=== PATIENT | female | born 1995 | race American Indian/Alaskan Native ===

== ENCOUNTER 2017-08-04 11:18 | Emergency (ER) | payer MEDICAID ==
[2017-08-04 11:40] VITALS: BMI 26.5
[2017-08-04 11:45] VITALS: TEMP 98.2
--- NOTE | 2017-08-04 13:04 | RAD ---
HISTORY: chest pain COMPARISON: No prior. TECHNIQUE: Chest PA and lateral FINDINGS: LUNGS: No active pulmonary disease. PLEURA: No significant pleural effusion identified. No pneumothorax apparent. CARDIOVASCULAR: Normal. OSSEOUS STRUCTURES: No significant abnormalities. VISUALIZED UPPER ABDOMEN: Normal. OTHER FINDINGS: None. IMPRESSION: No active disease.
--- NOTE | 2017-08-04 13:05 | RAD ---
PROCEDURE: Radiographs of the Lumbar Spine. HISTORY: back pain COMPARISON: No prior. FINDINGS: BONES: Normal alignment. No listhesis. No fracture. DISC SPACES: Unremarkable. OTHER FINDINGS: None. IMPRESSION: Unremarkable radiographs of the lumbar spine.
--- NOTE | 2017-08-04 13:15 | ED PDOC ---
Arrival/HPI - General Chief Complaint: Back Pain Time Seen by Provider: 08/04/17 11:42 Historian: Patient - History of Present Illness Narrative History of Present Illness (Text): 08/04/17 13:13 22yo female with no PMhx who present with complaint of epigastric abdominal and lower back pain. Notes she had 2 episodes of brassy gassy vomit with dyspepsia this morning. States back pain is with movement. She denies urinary symptoms, diarrhea, constipation, fever, chills, ripping/tearing upper back pain, SOB, diaphoresis, LE edema, calf pain, recent travel, abdominal pain, any other complaint. Past Medical History - Provider Review Nursing Documentation Reviewed: Yes - Infectious Disease Hx of Infectious Diseases: None - Psychiatric Hx Substance Use: No - Anesthesia Hx Anesthesia: No Family/Social History - Physician Review Nursing Documentation Reviewed: Yes Family/Social History: Unknown Family HX Smoking Status: Never Smoked Hx Alcohol Use: No Hx Substance Use: No Allergies/Home Meds Allergies/Adverse Reactions: Allergies No Known Allergies Allergy (Verified 06/07/17 22:01) Review of Systems - Physician Review All systems were reviewed & negative as marked: Yes - Review of Systems Constitutional: Normal Eyes: Normal ENT: Normal Respiratory: Normal Cardiovascular: Normal Gastrointestinal: Abdominal Pain, Vomiting. absent: Constipation, Diarrhea, Nausea, Hematochezia, Hematemesis Genitourinary Female: Normal Musculoskeletal: Back Pain Skin: Normal Neurological: Normal Endocrine: Normal Hemo/Lymphatic: Normal Psychiatric: Normal Physical Exam Vital Signs Reviewed: Yes Vital Signs Temp Pulse Resp BP Pulse Ox 08/04/17 13:42 72 16 118/72 98 08/04/17 11:44 98.2 F 98 H 18 121/83 99 Temperature: Afebrile Blood Pressure: Normal Pulse: Regular Respiratory Rate: Normal Appearance: Positive for: Well-Appearing, Non-Toxic, Comfortable Pain Distress: None Mental Status: Positive for: Alert and Oriented X 3 - Systems Exam Head: Present: Atraumatic, Normocephalic Pupils: Present: PERRL Extroacular Muscles: Present: EOMI Conjunctiva: Present: Normal Mouth: Present: Moist Mucous Membranes Neck: Present: Normal Range of Motion Respiratory/Chest: Present: Clear to Auscultation, Good Air Exchange. No: Respiratory Distress, Accessory Muscle Use, Wheezes, Decreased Breath Sounds, Rales, Retracting, Rhonchi, Tachypneic Cardiovascular: Present: Regular Rate and Rhythm, Normal S1, S2. No: Murmurs Abdomen: Present: Normal Bowel Sounds, Other (Soft). No: Tenderness, Distention , Peritoneal Signs, Rebound, Guarding, McBurney's Point Tender, Rovsing's Sign Present Back: Present: Normal Inspection Upper Extremity: Present: Normal Inspection. No: Cyanosis, Edema Lower Extremity: Present: Normal Inspection. No: Edema Neurological: Present: GCS=15, CN II-XII Intact, Speech Normal Skin: Present: Warm, Dry, Normal Color. No: Rashes Psychiatric: Present: Alert, Oriented x 3, Normal Insight, Normal Concentration Medical Decision Making ED Course and Treatment: 08/04/17 18:25 PT in ED for stated history. she notes that her symptoms resolved in ED with medication EKG NSR with QT prolongation @98bpm CXR NAD LS xray - Negative Her symptoms is secondary to GERD, hence the resolution of her symptom with pepcid in ED. Her pain was also localized to her epigastric area. She was educated on her food choice. Rx of pepcid given. Referred to her PMD. Advised TRT Ed for any new or worsening symptoms. - RAD Interpretation Radiology Orders: 08/04/17 12:09 CHEST TWO VIEWS (PA/LAT) [RAD] Stat LS SPINE WITH OBL > 18 YRS OLD [RAD] Stat - Medication Orders Current Medication Orders: Discontinued Medications Famotidine (Pepcid) 40 mg PO STAT STA Stop: 08/04/17 12:10 Last Admin: 08/04/17 12:36 Dose: 40 mg Ibuprofen (Motrin Tab) 600 mg PO STAT STA Stop: 08/04/17 12:11 Last Admin: 08/04/17 12:36 Dose: 600 mg MAR Pain/Vitals Document 08/04/17 12:36 GMD (Rec: 08/04/17 12:36 GMD [id number]) Pain Reassessment Is This A Pain ReAssessment? No Sleep Is patient sleeping during reassessment? No Presence of Pain Presence of Pain Yes Ondansetron HCl (Zofran Odt) 4 mg PO STAT STA Stop: 08/04/17 13:15 Last Admin: 08/04/17 13:19 Dose: 4 mg Disposition/Present on Arrival - Present on Arrival Any Indicators Present on Arrival: No History of DVT/PE: No History of Uncontrolled Diabetes: No Urinary Catheter: No History of Decub. Ulcer: No History Surgical Site Infection Following: None - Disposition Have Diagnosis and Disposition been Completed?: Yes Diagnosis: Back pain, Abdominal pain, Chest pain Disposition: HOME/ ROUTINE Disposition Time: 13:25 Patient Plan: Discharge Condition: STABLE Discharge Instructions (ExitCare): Chest Pain (ED) Additional Instructions: Follow up with your doctor Return to ED for any new or worsening symptoms Prescriptions: Famotidine [Pepcid] 20 mg PO BID #20 tab Referrals: Arabella Felix [Primary Care Provider] - Follow up with primary Forms: [facility] (Yi)
[2017-08-04 13:42] VITALS: BP 118/72; PULSE 72; RESP 16; O2SAT 98
--- NOTE | 2017-08-05 14:36 | CARD ---
APPROVED REPORT EKG Measurement Heart [id number] <Conclusion> Normal sinus rhythm Nonspecific T wave abnormality
== END 2017-08-04 13:44 | disposition home or self-care (01) ==
LOC: ED 11:18
DX: R07.9 Chest pain, unspecified (principal); R10.9 Unspecified abdominal pain; M54.5 Low back pain